=== PATIENT | female | born 1965 | race Caucasian/White ===

== ENCOUNTER 2016-03-30 08:17 | Day surgery (SDC) | payer OTHER ==
[~2016-03-30] VITALS: Ht 162.6 cm; Wt 90.6 kg
[~2016-03-30 08:17] MED LIST: 0.9% Sodium Chloride 1,000 ML IV SCH; ATEN25TA PO; CLON0.1T PO; DIPH25CA6 PO; FLUO20CA25 PO; GABA-502 PO; GLPZ5T PO; KLO5T PO; LAMO200T2 PO; Lactated Ringer's 1,000 ML IV ONE; METF500T4 PO; Sodium Chloride LOK Flush 10 mL Syringe IVFLUSH SCH; Vancomycin Dose per Pharmacist XX ONE
[2016-03-30 08:40] VITALS: BP 160/96; PULSE 91; RESP 19; O2SAT 95
[2016-03-30] MEDS ORDERED: Vancomycin Inj 1,000 MG in IV Premix 1 EACH IV ONE (13:40)
== END 2016-03-30 23:59 | disposition home or self-care (01) ==
LOC: SAS 08:17
PROVIDERS: ATTEND Orthopaedic Surgery
DX: M19.90 Unspecified osteoarthritis, unspecified site (principal); Z53.8 Procedure and treatment not carried out for other reasons

== ENCOUNTER 2016-07-16 18:14 | Emergency (ER) | payer OTHER ==
[~2016-07-16 18:14] MED LIST changes: -0.9% Sodium Chloride 1,000 ML IV SCH; -Lactated Ringer's 1,000 ML IV ONE; -Sodium Chloride LOK Flush 10 mL Syringe IVFLUSH SCH; -Vancomycin Dose per Pharmacist XX ONE
[2016-07-16 18:20] VITALS: BP 145/78; PULSE 78; RESP 18; O2SAT 98
--- NOTE | 2016-07-16 18:47 | ED.REPORT ---
HPI-Trauma Minor / Fall Date of Service Jul 16, 2016 ED Provider: Maximo Callahan DO Patient is a 51-year-old woman with history of PTSD, diabetes mellitus type II treated with metformin, hypertension on triple therapy, presents after a ground- level fall when she tripped over the handle of her purse, she fell on outstretched right arm onto carpeted floor. She was unable to get up, she did strike her head on the floor, she denies losing consciousness but did say she felt dizzy afterwards. She was unable to get up on her own citing that her arm and her ribs were too painful to allow her to do so. She denies any shortness of breath, but does states difficult and painful to breathe secondary to pain on her right thorax, she is unable to move her right upper extremity at any joint other than her first carpometacarpal. She denies being on any blood thinners, including aspirin. She says she has fallen before secondary to chronic pain in her left knee. Nursing Notes Stated Complaint: GROUND LEVEL FALL Chief Complaint: Multiple Trauma/Fall Nursing Notes Reviewed: Yes Allergies: Coded Allergies: alcohol (Verified Allergy, Severe, lose memory, rash, 07/16/16) cephalexin (Verified Allergy, Severe, FACIAL SWELLING, 07/16/16) milk (Verified Allergy, Severe, allergic to all dairy products, 07/16/16) morphine (Verified Adverse Reaction, Severe, rash all over body;ITCHING, ) apple (Verified Adverse Reaction, Unknown, DIARRHEA, 07/16/16) Scheduled Atenolol (Atenolol) 25 Mg Tablet 25 MG PO DAILY Clonidine (Clonidine) 0.1 Mg Tablet 0.1 MG PO BID Fluoxetine (Fluoxetine) 20 Mg Capsule 1 CAPSULE PO DAILY Gabapentin (Gabapentin) 300 Mg Capsule 300 MG PO BID Glipizide (Glipizide) 5 Mg Tablet 5 MG PO DAILY Lamotrigine (Lamotrigine) 200 Mg Tablet 150 MG PO BID Metformin (Metformin) 500 Mg Tablet 500 MG PO BID Scheduled PRN Clonazepam (Clonazepam) 0.5 Mg Tablet 0.5 TABLET PO TID PRN PRN For Anxiety diphenhydrAMINE HCl (Benadryl) 25 Mg Capsule 50 MG PO TID PRN PRN For Anxiety General Time Seen by MD: 18:21 Chief Complaint Fall on outstretched hand Hx Obtained From: Patient Past Medical History Past Medical History Notes: PCP: Dr. Delarosa Last ED Visit 07/04/15, Abd pain, negative CT Allergy to morphine listed on chart, but has tolerated Dilaudid without incident Past Medical History Admit for PTSD-In hospital October 22-October 24 2014 Admit for polysubstance OD w/SI November 15-2014 requiring intubation and ICU stay Reviewed from previous charts: Degenerative disk disease cervical spine with radiculopathy- had physical therapy. Thyroid Nodule on U/S 09/2014 Reports: Diabetes mellitus, Hyperlipidemia, Hypertension, Mental illness Reports: Depression Past Surgical History Reports: Appendectomy, Hysterectomy Family History Noncontributory Smoking History Never Smoker Social History Alcohol Use: Denies alcohol use Drug Use: Denies drug use Other Social History: Local resident Ambulatory Status Independent Review of Systems Denies any lightheadedness, endorses dizziness, no fevers chills, no nausea vomiting or diarrhea, no double vision, did not bite her tongue. No rashes. No abrasions or lesions. Complete sys rev & neg: except as marked. Physical Exam General: Laying in bed, mild distress and uncomfortable. HEENT: Normocephalic, atraumatic, EOMI grossly, PERRLA, mucous membranes moist, no lacerations on tongue, oropharynx is without abnormalities, neck is supple without lymphadenopathy. There is tenderness at base of neck. As well as tenderness over multiple vertebral processes of the C-spine. Cardiovascular: Regular rate and rhythm, no clicks murmurs rubs, peripheral pulses 2/4 equal bilaterally Pulmonary: Clear to auscultation bilaterally, no W/R/R. there is exquisite tenderness over the right hemithorax Abdominal: Soft to palpation. Extremities: No edema appreciated. Right upper extremity is held guarded, she is unable to move all joints secondary to pain except for that of the first MCP , exquisite tenderness over the wrist, forearm, medial and lateral elbow, humerus, glenohumeral joint, manubrium. Neuro: Cranial nerves II through XII grossly intact, evaluation of cranial nerve XI on right is blunted by pain. MSK: There is tenderness over the left knee, chronic. Left upper extremity county administrator strength is 5 out of 5, unable to evaluate right upper extremity secondary to pain. Initial Vital Signs Vital Signs (First) Date Time Temp Pulse Resp B/P Pulse Ox O2 Delivery O2 Flow Rate FiO2 07/16/16 18:20 36.8 78 18 145/78 98 Room Air Initial VS: Reviewed Interpretation & Diagnostics Lab Results Interpretation Test 07/16/16 18:29 Hold Purple Top Tube Received (Received) Hold Blue Top Tube Received (Received) Hold [place] Top Tube Received (Received) X-Ray Interpretation Xray Interpretation: X-rays of hand, wrist, forearm, elbow, humerus, shoulder, and chest were performed and no fractures were seen in the upper extremity, nor were there any cardiopulmonary processes visible on chest x-ray. There is no fractured ribs seen. Re-Eval/Medical Decision Med Decision/Clinical Course Pain out of proportion to examination. Discussed test results with the patient , stated there are no fractures, and she is feeling is most likely due to soft tissue injury, contusion, and will most likely hurt more in the coming days. She states she has a pain contract with her primary care doctor for Vicodin, instructed her that if we give her additional pain and she needs to notify her doctor first thing Tuesday morning to not be in violation of that pain contract. Verbally advised patient that she can alternate heat and ice over the areas that hurt the most. Discussed red flag symptoms with return protocol, patient stated understanding and agreement. Discharge & Departure Impression: Primary Impression: Fall from ground level Additional Impressions: Contusion of right arm Encounter type: initial encounter Qualified Code: S40.021A - Contusion of right upper arm, initial encounter Chest wall contusion Encounter type: initial encounter Laterality: right Qualified Code: S20.211A - Contusion of right front wall of thorax, initial encounter Disposition: Home Discharge Condition All VS Reviewed: Yes Condition: Stable Patient Instructions: Fall Prevention for Older Adults (GEN) Additional Instructions: Thank you for entrusting us with your care. We did a thorough evaluation did not show any fractures to her neck, shoulder, arm, elbow, wrist or hand. There is no signs of fracture or damage to the underlying structures of your chest. Please follow-up with your primary care doctor next week regarding the fall, and pain management. If you develop any lightheadedness, dizziness, nausea or vomiting, double vision , please return to the emergency department. We are fitting you with a arm sling, this is supposed to help you rest your arm over the next week. Recommend you do not completely guard using your upper extremity, however respect that it is in pain. We are giving you Percocet to take home for additional pain. Please do not drive while taking this medication. Do not consume alcohol while you are taking his medication, please do not be in a situation where you would be required to be awake and alert as it can cause drowsiness. Additionally, let your primary care doctor know that you have been given additional pain medications by the emergency department. Failure to do so may result in difficulty receiving pain medication from your primary care in the future. Referrals: Eric Delarosa MD (PCP) Attending Statement I personally took a history and performed a physical exam. I reviewed the xrays and agree with the note and plan as delineated above. copies to: Eric Delarosa MD, Noah M DO Jul 16, 2016 18:47 Maximo Callahan DO Jul 17, 2016 22:47
[2016-07-16] MEDS ORDERED: Ondansetron 2 mg/mL 2 mL Inj IVPUSH PRN (18:50)
--- NOTE | 2016-07-16 19:14 | DRSVH ---
PROCEDURE: CT CERVICAL SPINE WITHOUT CONTRAST ([id number]) INDICATIONS: cspine fx eval. TECHNIQUE: Noncontrast 3 mm thick sections acquired from the skull base to the T4 level. Sagittal and coronal r eformats were then constructed. For radiation dose reduction, the following was used: automated exp osure control, adjustment of mA and/or kV according to patient size. COMPARISON: [facility], CT, CT CERVICAL SPINE WO CON, 08/10/2015, 2:18. [facility], CT, C-SPINE W/O CONTRAST, 08/16/2014, 15:05. [facility], MR, CERVICAL SPINE W/O C ONTRAST, 10/09/2012, 7:43. [facility], CR, SPINE CERVICAL 2 OR 3VW, 07/03/2012, 12:49. [facility], CT, C-SPINE W/O CONTRAST, 11/06/2010, 11:09. FINDINGS: Image quality: Excellent. Bones: No fractures or dislocations. Trace C5-C6 degenerative retrolisthesis is stable compared to p rior examinations. Visualized superior ribs are intact. Multilevel degenerative disc disease and fac et arthropathy are noted. Soft tissues: Prevertebral soft tissues are normal in thickness. No paravertebral hematomas. No ap ical pneumothoraces. Postsurgical changes noted in the left thyroid lobe. IMPRESSION: No fracture. No acute osseous lesion. If there are persistent symptoms or continued clin ical suspicion for pathology, then MRI should be considered for further evaluation. Dictated by: Danette Basilio MD, PhD on 07/16/2016 at 19:05 Approved by: Danette Basilio MD, PhD on 07/16/2016 at 19:13
--- NOTE | 2016-07-16 19:39 | DRSVH ---
PROCEDURE: X-RAY CHEST ONE VIEW ([id number]) INDICATIONS: Ground level fall , Rib pain/ Pneumothorax/fracture TECHNIQUE: One view of the chest was acquired. COMPARISON: None. FINDINGS: Surgical changes and devices: Renal surgical clip projects over the left neck base. Lungs and pleura: No pleural effusions or pneumothorax. Lungs are clear. Mediastinum: Mediastinal contours appear normal. Heart size is normal. Bones and chest wall: No suspicious bony lesions. Overlying soft tissues appear unremarkable. IMPRESSION: No acute cardiopulmonary disease process. Dictated by: Danette Basilio MD, PhD on 07/16/2016 at 19:37 Approved by: Danette Basilio MD, PhD on 07/16/2016 at 19:37
--- NOTE | 2016-07-16 19:40 | DRSVH ---
PROCEDURE: X-RAY RIGHT HAND, MINIMUM THREE VIEWS ([id number]) INDICATIONS: GROUND LEVEL FALL, Rib pain/ Pneumothorax/fracture TECHNIQUE: 3 views of the hand(s) acquired. COMPARISON: None. FINDINGS: Bones: No fractures or dislocations. Carpal bones are normally aligned. No suspicious bony lesions . Soft tissues: No suspicious soft tissue calcifications. IMPRESSION: No acute cardiopulmonary disease process. Dictated by: Danette Basilio MD, PhD on 07/16/2016 at 19:37 Approved by: Danette Basilio MD, PhD on 07/16/2016 at 19:38
--- NOTE | 2016-07-16 19:42 | DRSVH ---
PROCEDURE: X-RAY RIGHT WRIST COMPLETE, MINIMUM THREE VIEWS ([id number]) INDICATIONS: GROUND LEVEL FALL, Rib pain/ Pneumothorax/FRACTURE TECHNIQUE: 4 views of the wrist were acquired. COMPARISON: None. FINDINGS: Bones: No fractures or dislocations. No suspicious bony lesions. Scaphoid view: Scaphoid is intact. Soft tissues: No suspicious soft tissue calcifications. IMPRESSION: No fracture. No acute osseous lesion. If there are persistent symptoms or clinical suspi cion for pathology, then repeat radiographs or advanced imaging (CT, MRI or bone scan) should be cons idered for further evaluation. Dictated by: Danette Basilio MD, PhD on 07/16/2016 at 19:40 Approved by: Danette Basilio MD, PhD on 07/16/2016 at 19:41
--- NOTE | 2016-07-16 19:42 | DRSVH ---
PROCEDURE: X-RAY RIGHT FOREARM, TWO VIEWS ([id number]) INDICATIONS: GROUND LEVEL FALL, Rib pain/ Pneumothorax/fRACTURE? TECHNIQUE: 2 views of the forearm were acquired. COMPARISON: None. FINDINGS: Bones: No fractures or dislocations. No suspicious bony lesions. Soft tissues: No suspicious soft tissue calcifications or masses. IMPRESSION: No fracture. No acute osseous lesion. If there are persistent symptoms or clinical suspi cion for pathology, then repeat radiographs or advanced imaging (CT, MRI or bone scan) should be cons idered for further evaluation. Dictated by: Danette Basilio MD, PhD on 07/16/2016 at 19:40 Approved by: Danette Basilio MD, PhD on 07/16/2016 at 19:40
--- NOTE | 2016-07-16 19:43 | DRSVH ---
PROCEDURE: X-RAY RIGHT ELBOW COMPLETE, MINIMUM THREE VIEWS ([id number]) INDICATIONS: GROUND LEVEL FALL, Rib pain/ Pneumothorax/fracture TECHNIQUE: 3 views of the elbow were acquired. COMPARISON: None. FINDINGS: Bones: No fractures or dislocations. No suspicious bony lesions. Soft tissues: No elbow joint effusion. No suspicious soft tissue calcifications. IMPRESSION: No fracture. No acute osseous lesion. If there are persistent symptoms or clinical suspi cion for pathology, then repeat radiographs or advanced imaging (CT, MRI or bone scan) should be cons idered for further evaluation. Dictated by: Danette Basilio MD, PhD on 07/16/2016 at 19:41 Approved by: Danette Basilio MD, PhD on 07/16/2016 at 19:42
[2016-07-16] MEDS: HYDROmorphone 0.5 mg/0.5 mL iSecure Syringe IVPUSH PRN ×2 (19:45→20:41)
--- NOTE | 2016-07-16 19:46 | DRSVH ---
PROCEDURE: X-RAY RIGHT SHOULDER, MINIMUM TWO VIEWS ([id number]) INDICATIONS: GROUND LEVEL FALL, Rib pain/ Pneumothorax/ TECHNIQUE: 2 views of the shoulder were acquired. COMPARISON: None. FINDINGS: Bones: No fractures or dislocations. No suspicious bony lesions. Visualized ribs appear intact. Soft tissues: No suspicious soft tissue calcifications. IMPRESSION: No fracture. No osseous lesion. If there are persistent symptoms or clinical suspicion f or pathology, then repeat radiographs or advanced imaging (CT, MRI or bone scan) should be considered for further evaluation. Dictated by: Danette Basilio MD, PhD on 07/16/2016 at 19:44 Approved by: Danette Basilio MD, PhD on 07/16/2016 at 19:44
--- NOTE | 2016-07-16 19:47 | DRSVH ---
PROCEDURE: X-RAY RIGHT HUMERUS, MINIMUM TWO VIEWS ([id number]) INDICATIONS: GROUND LEVEL FALL, Rib pain/ Pneumothorax/ TECHNIQUE: 2 views of the humerus were acquired. COMPARISON: None. FINDINGS: Bones: No fractures or dislocations. No suspicious bony lesions. Soft tissues: No suspicious soft tissue calcifications. IMPRESSION: No fracture. No osseous lesion. If there are persistent symptoms or clinical suspicion f or pathology, then repeat radiographs or advanced imaging (CT, MRI or bone scan) should be considered for further evaluation. Dictated by: Danette Basilio MD, PhD on 07/16/2016 at 19:45 Approved by: Danette Basilio MD, PhD on 07/16/2016 at 19:45
[2016-07-16] MEDS ORDERED: _oxyCODONE/APAP 5-325 mg Tablet PO PRN (20:10)
[2016-07-16 20:43] VITALS: BP 140/77; PULSE 72; RESP 18; O2SAT 99
== END 2016-07-16 20:54 | disposition home or self-care (01) ==
LOC: EDBD 18:14 → EDUNIT# 18:14 → SED 18:53
DX: S40.021A Contusion of right upper arm, initial encounter (principal); S20.211A Contusion of right front wall of thorax, initial encounter; W18.39XA Other fall on same level, initial encounter; Y93.89 Activity, other specified; Y92.89 Other specified places as the place of occurrence of the external cause; Y99.8 Other external cause status; I10 Essential (primary) hypertension; E11.9 Type 2 diabetes mellitus without complications; E78.5 Hyperlipidemia, unspecified; Z79.84 Long term (current) use of oral hypoglycemic drugs; Z88.1 Allergy status to other antibiotic agents; Z88.5 Allergy status to narcotic agent; Z91.011 Allergy to milk products; Z91.018 Allergy to other foods
CPT/HCPCS: 71010; 72125; 73030; 73060; 73080; 73090; 73110; 73130; 96374; 96375; 96376; 99285; J1170; J1885; J2405

== ENCOUNTER 2016-12-03 23:54 | Emergency (ER) | payer OTHER ==
[~2016-12-03] VITALS: Ht 162.6 cm; Wt 93.6 kg
[2016-12-03 23:58] VITALS: BP 153/93; PULSE 84; RESP 18; O2SAT 98
--- NOTE | 2016-12-04 00:38 | ED.REPORT ---
HPI-General Illness Date of Service Dec 04, 2016 ED Provider: Júnior Michaels MD This is a 51-year-old male with history of depression, PTSD, diabetes and hypertension who presents to the emergency department for suicidal and homicidal ideation. Patient reports 2 hours ago was in an argument with daughter and started feeling as if she wanted to hurt someone or herself. She said she needed to get away from her daughter and grandchildren to not hurt them and is seeking help. She does not have an active plan to hurt them or herself, but feels she is unable to be around them. She has had 2 similar episodes of this in the past for which she has been admitted into inpatient facilities voluntarily. She reported that this really helps her to calm down. She does mention seeing a psychiatrist every 2 weeks at [place] and she has been feeling good about it. She does mention she has had 8 suicide attempts in the past with taking pills and cutting her wrist. She denies any alcohol or drug use. At this time she feels as if her stomach is in knots and she is nauseated because of it. She denies hallucinations, fevers, chills, chest pain , shortness of breath. Nursing Notes Stated Complaint: MENTAL HEALTH EVAL Chief Complaint: Psychiatric Complaint Nursing Notes Reviewed: Yes Allergies: Coded Allergies: alcohol (Verified Allergy, Severe, lose memory, rash, 12/04/16) cephalexin (Verified Allergy, Severe, FACIAL SWELLING, 12/04/16) milk (Verified Allergy, Severe, allergic to all dairy products, 12/04/16) morphine (Verified Adverse Reaction, Severe, rash all over body;ITCHING, ) apple (Verified Adverse Reaction, Unknown, DIARRHEA, 12/04/16) Scheduled Atenolol (Atenolol) 25 Mg Tablet 25 MG PO DAILY Clonidine (Clonidine) 0.1 Mg Tablet 0.1 MG PO BID Fluoxetine (Fluoxetine) 20 Mg Capsule 1 CAPSULE PO DAILY Gabapentin (Gabapentin) 300 Mg Capsule 300 MG PO BID Glipizide (Glipizide) 5 Mg Tablet 5 MG PO DAILY Lamotrigine (Lamotrigine) 200 Mg Tablet 150 MG PO BID Metformin (Metformin) 500 Mg Tablet 500 MG PO BID Scheduled PRN Clonazepam (Clonazepam) 0.5 Mg Tablet 0.5 TABLET PO TID PRN PRN For Anxiety diphenhydrAMINE HCl (Benadryl) 25 Mg Capsule 50 MG PO TID PRN PRN For Anxiety General Time Seen by MD: 00:22 Chief Complaint Other (suicidal ideation) Past Medical History Past Medical History Notes: PCP: Dr. Delarosa Last ED Visit 07/04/15, Abd pain, negative CT Allergy to morphine listed on chart, but has tolerated Dilaudid without incident Past Medical History Admit for PTSD-In hospital October 22-October 24 2014 Admit for polysubstance OD w/SI November 15-2014 requiring intubation and ICU stay Reviewed from previous charts: Degenerative disk disease cervical spine with radiculopathy- had physical therapy. Thyroid Nodule on U/S 09/2014 Reports: Diabetes mellitus, Hyperlipidemia, Hypertension, Mental illness Reports: Depression Past Surgical History Reports: Appendectomy, Hysterectomy Family History Noncontributory Smoking History Never Smoker Social History Alcohol Use: Denies alcohol use Drug Use: Denies drug use Other Social History: Local resident Ambulatory Status Independent Review of Systems Full Review of Systems Constitutional: Denies: Chills, Fever Respiratory: Denies: Shortness of breath Cardiovascular: Denies: Chest pain GI: Denies: Abdominal pain Neurologic: Denies: Headache, Vision change Psychiatric: Reports: Depression, Homicidal ideation (without plan), Stress, Suicidal ideation (without plan) Complete sys rev & neg: except as marked. Physical Exam Vital Signs Vital Signs Date Time Temp Pulse Resp B/P Pulse Ox O2 Delivery O2 Flow Rate FiO2 12/04/16 06:50 36.2 83 20 143/93 96 Room Air 12/03/16 23:58 36.8 84 18 153/93 98 Room Air Initial VS: Reviewed General/Constitutional: Well-developed, Well-nourished Head / Eyes: Atraumatic, Normocephalic ENT: Mucous membranes moist, Conjunctiva normal, No scleral icterus Neck: Supple, Non-tender Respiratory: Breath sounds normal, Clear to auscultation, No respiratory distress Cardiovascular: Regular rate & rhythm, Heart sounds normal Abdomen / GI: Soft, Non-tender, No guarding, No distention Neurologic: Alert, Oriented, Nonfocal Neurologic: Oriented X3, Speech NL, CN II - XII intact Psychiatric: Affect NL, No hallucinations, Cognitive function NL, Judgment/ insight NL Abnormal Thinking / Perception: Positive: Homicidal, no plan, Suicidal, no plan Interpretation & Diagnostics Lab Results Interpretation Result Diagram: 12/04/16 0121 12/04/16 0121 Test 12/04/16 01:21 White Blood Count 11.7th/mm3 (3.8-10.1) Red Blood Count 4.66mil/mm3 (3.90-5.20) Hemoglobin 12.8g/dL (12.0-15.6) Hematocrit 39.7% (35.0-46.0) Mean Corpuscular Volume 85.2fL (81-100) Mean Corpuscular Hemoglobin 27.5pg (27.0-35.0) Mean Corpuscular Hemoglobin Concent 32.2% (32.0-37.0) Red Cell Distribution Width 13.4% (12.3-15.4) Platelet Count 264bil/L (150-400) Neutrophils (%) (Auto) 59.7% (40-74) Lymphocytes (%) (Auto) 25.7% (14-46) Monocytes (%) (Auto) 5.5% (4-12) Eosinophils (%) (Auto) 8.4% (0-5) Basophils (%) (Auto) 0.4% (0-3) Sodium Level 139mEq/L (134-144) Potassium Level 4.4mEq/L (3.5-5.2) Chloride Level 100mEq/L (97-108) Carbon Dioxide Level 25mmol/L (18-29) Blood Urea Nitrogen 14mg/dL (6-24) Creatinine 0.59mg/dL (0.57-1.00) Estimat Glomerular Filtration Rate 153mL/min (>59) Glucose Level 256mg/dL (60-99) Calcium Level 9.2mg/dL (8.5-10.1) Total Bilirubin 0.3mg/dL (0.0-1.2) Aspartate Amino Transf (AST/SGOT) 19U/L (0-50) Alanine Aminotransferase (ALT/SGPT) 23U/L (0-32) Alkaline Phosphatase 198U/L (25-150) Total Protein 6.6g/dL (6.4-8.4) Albumin 3.6g/dL (3.4-5.0) Thyroid Stimulating Hormone (TSH) 7.690uIU/mL (0.450-4.500) Hold [place] Top Tube Received (Received) Alcohols < 10mg/dL (0-10) Re-Eval/Medical Decision Med Decision/Clinical Course 51-year-old with depression and anxiety suicidal ideation and homicidal ideation, presents essentially to get out of her household and that some respite from aggravations at home. She is here voluntarily and no bed is available crisis. Awaits mental health evaluation this morning. No drugs or alcohol at issue. This is a 51-year-old female with history of PTSD and depression who comes to the emergency department to seek help for suicidal and homicidal ideation. This started 2 hours prior to presentation as result of the argument with her daughter. Patient has a feeling of wanting to harm herself or others but without any plan and felt that she needed to be away from her daughter and grand kids. She does not feel she can go home at this time as she is uncertain what she will do. Plan for [employer] in the morning. Discharge & Departure Shift Change Sign-Out Patient Care Transferred: Yes Discussed Complaint(s): Yes Laboratory Evaluation: Lab evaluation discussed Primary Impression: Suicidal ideations Additional Impression: Homicidal ideation Referrals: Eric Delarosa MD (PCP) Care Transferred to: Dr. Hoffman Care Transferred at: 06:00 Attending Statement As attending of record for this patient, I conducted an independent history and physical examination, and agree with the documentation per the resident note above, and as amended. Lyle Martinez DO Dec 04, 2016 00:38 Júnior Michaels MD Dec 04, 2016 07:34
[2016-12-04 01:25] LABS: BASOPHILS % (AUTO) 0.4 % (0-3); EOSINOPHILS % (AUTO) 8.4 % (0-5); MONOCYTES % (AUTO) 5.5 % (4-12); Mean Corpuscular Hemoglobin 27.5 pg (27.0-35.0); Mean Corpuscular Volume 85.2 fL (81-100); NEUTROPHILS % (AUTO) 59.7 % (40-74); Platelet Count 264 bil/L (150-400)
[2016-12-04 06:50] VITALS: BP 143/93; PULSE 83; RESP 20; O2SAT 96
[2016-12-04 11:01] VITALS: BP 157/81; PULSE 85; RESP 20; O2SAT 97
[2016-12-04] MEDS ORDERED: HYDROcodone-APAP 5-325 mg Tablet PO ONE (14:25)
[2016-12-04] MEDS ORDERED: HYDR-656 PO (15:43)
[2016-12-04] MEDS ORDERED: HYDR-4003 PO (15:43)
[2016-12-04] MEDS ORDERED: LIP40 PO (15:43)
[2016-12-04] MEDS ORDERED: BACL10TA PO (15:43)
[2016-12-04 15:45] VITALS: BP 136/75; PULSE 76; RESP 20; O2SAT 97
== END 2016-12-04 17:29 ==
LOC: SED 23:54
DX: R45.851 Suicidal ideations (principal); R45.850 Homicidal ideations; F33.1 Major depressive disorder, recurrent, moderate; F41.9 Anxiety disorder, unspecified; E11.9 Type 2 diabetes mellitus without complications; I10 Essential (primary) hypertension; E78.5 Hyperlipidemia, unspecified; F43.10 Post-traumatic stress disorder, unspecified; Z90.89 Acquired absence of other organs; Z79.84 Long term (current) use of oral hypoglycemic drugs; Z88.5 Allergy status to narcotic agent; Z88.1 Allergy status to other antibiotic agents
CPT/HCPCS: 36415; 80053; 82075; 84443; 85025; 99284; G0480